=== PATIENT | female | born 1995 | race Caucasian/White ===

== ENCOUNTER 2018-03-11 18:26 | Emergency (ER) | payer OTHER ==
[2018-03-11] MEDS ORDERED: AMOXICILLIN TR/POT CLAVULANATE 500-125 MG TAB PO ONE (19:13)
--- NOTE | 2018-03-11 19:16 | ER Document Report ---
ED Wound - General Chief Complaint: Laceration Stated Complaint: VAGINAL PAIN Time Seen by Provider: 03/11/18 19:04 Notes: Patient is a 23-year-old female that comes to the emergency department for chief complaint of laceration to the genital/groin area, she states she was bathing with a brand-new dog that they just picked up when the dog jumped up and cut her accidentally with its claws. She states it was bleeding fairly heavily initially so she became concerned and came in for evaluation. She denies being bitten. Her tetanus is up-to-date within 2 years. She denies any other injuries or complaints. She is not a diabetic. TRAVEL OUTSIDE OF THE [place] IN LAST 30 DAYS: No - Related Data Allergies/Adverse Reactions: No Known Allergies Allergy (Verified 03/11/18 18:44) Past Medical History - General Information source: Patient - Social History Smoking Status: Never Smoker Frequency of alcohol use: None Drug Abuse: None Lives with: Family Family History: Reviewed & Not Pertinent Patient has suicidal ideation: No Patient has homicidal ideation: No Pulmonary Medical History: Reports: Hx Asthma Renal/ Medical History: Denies: Hx Peritoneal Dialysis Surgical Hx: Negative - Immunizations Immunizations up to date: Yes Hx Diphtheria, Pertussis, Tetanus Vaccination: Yes Review of Systems - Review of Systems Constitutional: No symptoms reported EENT: No symptoms reported Cardiovascular: No symptoms reported Respiratory: No symptoms reported Gastrointestinal: No symptoms reported Genitourinary: No symptoms reported Female Genitourinary: See HPI Musculoskeletal: No symptoms reported Skin: See HPI Hematologic/Lymphatic: No symptoms reported Neurological/Psychological: No symptoms reported Physical Exam - Vital signs Vitals: Temp Pulse Resp BP Pulse Ox 97.8 F 70 16 151/87 H 100 03/11/18 18:31 03/11/18 18:31 03/11/18 18:31 03/11/18 18:31 03/11/18 18:31 - Notes Notes: GENERAL: Alert, interacts well. No acute distress. HEAD: Normocephalic, atraumatic. EYES: Pupils equal, round, and reactive to light. Extraocular movements intact. ENT: Oral mucosa moist, tongue midline. NECK: Full range of motion. Supple. Trachea midline. LUNGS: Clear to auscultation bilaterally, no wheezes, rales, or rhonchi. No respiratory distress. HEART: Regular rate and rhythm. No murmur ABDOMEN: Soft, non-tender. Non-distended. Bowel sounds present in all 4 quadrants. GENITOURINARY: There is a superficial vertical linear laceration over the left labia majora over the inner aspect, there is a small flap tissue that covers the superficial wound. There is no current noted bleeding. No other traumatic findings. Sarah PCT present at bedside. EXTREMITIES: Moves all 4 extremities spontaneously. No edema, normal radial and dorsalis pedis pulses bilaterally. No cyanosis. BACK: no cervical, thoracic, lumbar midline tenderness. No saddle anesthesia, normal distal neurovascular exam. NEUROLOGICAL: Alert and oriented x3. Normal speech. [cranial nerves II through XII grossly intact]. PSYCH: Normal affect, normal mood. SKIN: Warm, dry, normal turgor. No rashes or lesions noted. Course - Re-evaluation Re-evalutation: Discussed with patient and significant other. Wound is a superficial flap over the labia majora on the left, after initial discussion decision was made to keep area clean, not close, and placed antibiotics. However patient and significant other changes her mind, before being discharged they requested his to see me and asked for the area to be close. I discussed that there is an increased risk of infection and the area is superficial. They still requested this to be closed. After cleansing and closure placed on antibiotic, given first dose, discussed expectations, follow-up, and return precautions. They state understanding and agreement. - Vital Signs Vital signs: Temp Pulse Resp BP Pulse Ox 98.5 F 53 L 16 114/71 100 03/11/18 20:29 03/11/18 20:29 03/11/18 20:29 03/11/18 20:29 03/11/18 20:29 Procedures - Laceration/Wound Repair Left labia majora Wound length (cm): 1.5 Wound's Depth, Shape: Superficial, Linear, Flap Laceration pre-procedure: Sterile PPE donned, Sterile drapes applied, Shur- Clens applied Anesthetic type: 1% Lidocaine w/epi Volume Anesthetic (mLs): 2 Wound explored: Clean, No foreign body removed Wound Repaired With: Sutures Suture Size/Type: 5:0, Vicryl Number of Sutures: 3 Layer Closure?: No Post-procedure NV exam normal: Yes Complications: No Discharge - Discharge Clinical Impression: Laceration of genitalia Condition: Stable Disposition: HOME, SELF-CARE Additional Instructions: Laceration was repaired with absorbable sutures. These usually come out on their own after about a week. When they break apart you can remove the pieces. Keep clean, clean gently with soap and water, avoid soaking. The next 2 days it may bleed mildly/intermittently. Take Augmentin antibiotic as prescribed to avoid infection, take probiotic source to avoid diarrhea. Follow-up with primary care. Return if you worsen including developing redness, swelling, discolored discharge, fever, or any other concerning symptoms. Prescriptions: Amox Tr/Potassium Clavulanate [Augmentin 875-125 Tablet] 1 tab PO BID 5 Days tablet
[2018-03-11] MEDS ORDERED: LIDOCAINE 1%/EPINEPHRINE INJ 20 ML VIAL INJ ONE (19:32)
[2018-03-11 20:32] VITALS: BP 114/71
== END 2018-03-11 20:29 | disposition home or self-care (01) ==
LOC: ER 18:26
PROC: 0HQ9XZZ Repair Perineum Skin, External Approach (ICD-10-PCS; principal; 2018-03-11)
DX: S31.41XA Laceration without foreign body of vagina and vulva, initial encounter (principal); W54.8XXA Other contact with dog, initial encounter; Y92.009 Unspecified place in unspecified non-institutional (private) residence as the place of occurrence of the external cause
CPT/HCPCS: 99283; 12001; J3490